=== PATIENT | male | born 1990 | race American Indian/Alaskan Native ===

== ENCOUNTER 2022-09-25 16:55 | Emergency (ER) | payer BC, MEDICAID, OTHER ==
[2022-09-25] MEDS ORDERED: Take Home: Amoxicillin 500 MG, 6 Cap Pack PO ONE (19:05)
== END 2022-09-25 19:15 | disposition home or self-care (01) ==
LOC: DL.ED 16:55
DX: K04.7 Periapical abscess without sinus (principal); K02.9 Dental caries, unspecified
CPT/HCPCS: 99282; A9270-GY